=== PATIENT | male | born 1960 | race Caucasian/White ===

== ENCOUNTER → 2019-08-27 | Outpatient (CLI) | payer OTHER ==
--- NOTE | 2019-08-27 15:58 | KCIC ---
Examination: MRI of the left knee without contrast HISTORY: History of left knee pain COMPARISON: None available TECHNIQUE: Multiplanar, multisequence MR imaging of the left knee was performed without contrast. FINDINGS: The anterior cruciate ligament, posterior cruciate ligament appear intact. The medial meniscus, lateral meniscus appear intact. The medial collateral ligament is intact. Lateral collateral ligaments complex including the fibular collateral ligament, biceps femoris tendon, popliteus tendon appear intact. Small knee joint effusion is identified. The extensor mechanism is intact. Deep fissuring of cartilage identified in the patellofemoral compartments. Superficial fraying of cartilage identified in the medial, lateral compartments. Small subchondral cysts identified in the medial femoral condyle and in the patella. Medial retinaculum, lateral retinaculum appear intact. Small knee joint effusion. IMPRESSION: 1. Grade III chondromalacia patella. 2. Grade 1 chondromalacia medial, lateral compartments. 3. Small knee joint effusion. Electronically signed by: Joaquin Russo MD (08/27/2019 3:55 PM) [id number]
== END ==
LOC: KCIC MRI 14:25
PROVIDERS: ATTEND Orthopaedic Surgery
DX: M25.462 Effusion, left knee (principal); M94.29 Chondromalacia, multiple sites
CPT/HCPCS: 73721